=== PATIENT | male | born 1950 | race Caucasian/White ===

== ENCOUNTER 2017-03-06 05:44 | Observation (INO) | payer BC ==
[~2017-03-06] VITALS: Ht 184.2 cm; Wt 130.9 kg
[~2017-03-06 05:44] MED LIST: ATOR10TA15 PO; DILT300C3 PO; DOXA1TAB36 PO; LISI20TA3 PO; METF850T PO; MULT1TAB PO; SITA1TAB2 PO
[2017-03-06] MEDS ORDERED: CHLORHEXIDINE GLUCONATE 2 % 1 PACK (2 CLOTHS) TOPICAL PRN (06:15)
[2017-03-06] MEDS ORDERED: METOPROLOL TARTRATE 25 MG TAB PO PRN (06:15)
[2017-03-06] MEDS ORDERED: LACTATED RINGER'S 1000 ML IV PRN (06:15)
[2017-03-06] MEDS ORDERED: SODIUM CHLORID 0.9% 500 ML IV PRN (06:15)
[2017-03-06] MEDS ORDERED: POVIDONE IODINE 5% (ANTISEPSIS KIT) 4 APPLICATIONS EACH NARE PRN (06:15)
[2017-03-06] MEDS ORDERED: metroNIDAZOLE 500 MG INJ 100 ML IV SCH (06:15)
[2017-03-06] MEDS ORDERED: ceFAZolin 2 GM PREMIX 50 ML IV SCH (06:15)
[2017-03-06 06:57] LABS: AUTOMATED NEUTROPHIL # 5.1 TH/MM3 (1.8-7.7); BASOPHIL % 0.5 % (0.0-2.0); EOSINOPHIL # 0.2 TH/MM3 (0-0.4); EOSINOPHIL % 2.6 % (0.0-4.0); HEMATOCRIT 42.4 % (39.0-51.0); HEMOGLOBIN 14.4 GM/DL (13.0-17.0); LYMPH % 24.2 % (9.0-44.0); LYMPHOCYTE # 1.9 TH/MM3 (1.0-4.8); MEAN CELL VOLUME 84.7 FL (80.0-100.0); MEAN CORPUSCULAR HEMOGLOBIN 28.8 PG (27.0-34.0); MEAN PLATELET VOLUME 7.4 FL (7.0-11.0); MONOCYTE # 0.6 TH/MM3 (0-0.9); NEUT % 64.7 % (16.0-70.0); PLATELET COUNT 245 TH/MM3 (150-450); RED BLOOD COUNT 5.01 MIL/MM3 (4.50-5.90); WHITE BLOOD COUNT 7.8 TH/MM3 (4.0-11.0)
[2017-03-06] MEDS ORDERED: BUPIVACAINE/EPINEPHRINE 0.25% PF 30 ML VIAL ONE (06:58)
[2017-03-06 07:29] LABS: ALBUMIN 3.9 GM/DL (3.4-5.0); ALT (GPT) 46 U/L (12-78); AST (GOT) 28 U/L (15-37); BICARBONATE 25.8 MEQ/L (21.0-32.0); BLOOD UREA NITROGEN 15 MG/DL (7-18); CALCIUM 9.3 MG/DL (8.5-10.1); CHLORIDE 104 MEQ/L (98-107); CREATININE 0.76 MG/DL (0.60-1.30); GLOMERULAR FILTRATION RATE 103 ML/MIN (>89); GLUCOSE,RANDOM 157 MG/DL (74-106); SODIUM (NA) 139 MEQ/L (136-145)
[2017-03-06 07:32] LABS: ALKALINE PHOSPHATASE 46 U/L (45-117); TOTAL BILIRUBIN ADULT 0.5 MG/DL (0.2-1.0); TOTAL PROTEIN 7.6 GM/DL (6.4-8.2)
[2017-03-06] MEDS ORDERED: LACTATED RINGER'S 1000 ML INJ 1,000 ML IV SCH (09:42)
[2017-03-06] MEDS ORDERED: ONDANSETRON HCL 4 MG/2 ML VIAL IV PUSH PRN (09:45)
[2017-03-06] MEDS ORDERED: MORPHINE SULFATE 2 MG/ML INJ IM PRN (09:45)
[2017-03-06] MEDS ORDERED: DO NOT ADM ANY ANTICOAGULANT DRUGS PRN (09:45)
[2017-03-06] MEDS ORDERED: KETOROLAC TROMETHAMINE 30 MG/ML (IVP) VIAL IVP PRN (09:45)
[2017-03-06] MEDS ORDERED: ACETAMINOPHEN/HYDROcodone 325 MG/5 MG TAB PO PRN (09:45)
[2017-03-06] MEDS ORDERED: Post-op Orders (for Pharmacy) XX ONE (09:45)
[2017-03-06] MEDS ORDERED: diphenhydrAMINE HCL 25 MG CAP PO PRN (09:45)
[2017-03-06] MEDS ORDERED: NALOXONE HCL 0.4 MG/ML AMP IV PUSH PRN (09:45)
[2017-03-06] MEDS ORDERED: *RESP: ALBUTEROL 2.5 MG/3 ML NEB (PRN) PERIprocedural Use ONLY NEB ONE (09:55)
[2017-03-06 11:03] VITALS: BP 120/68; PULSE 72; RESP 18; TEMP 97.9; O2SAT 95
--- NOTE | 2017-03-06 11:59 | MP ---
cc: GARY SOUZA M.D. DATE OF SURGERY: 03/06/2017 PREOPERATIVE DIAGNOSIS 1. Chronic cholecystitis. 2. Morbid obesity. 3. Insulin-dependent diabetes mellitus. POSTOPERATIVE DIAGNOSIS 1. Chronic cholecystitis. 2. Morbid obesity. 3. Insulin-dependent diabetes mellitus. PROCEDURE PERFORMED Laparoscopic cholecystectomy. SURGEON Gary Souza MD ANESTHESIA General endotracheal. COMPLICATIONS None. INDICATION FOR PROCEDURE Mr. Barragan is a pleasant 66-year-old gentleman who has had multiple bouts of epigastric right upper quadrant abdominal pain. He was noted to have some abnormal LFTs on his routine blood work. He was sent by his physician Dr. Manuel Sethi for imaging. Ultrasound demonstrated thickened gallbladder wall with multiple gallstones consistent with chronic cholecystitis. He was referred for surgical evaluation. Risks and benefits of open laparoscopic cholecystectomy was discussed with him. He was agreeable. DETAILS OF PROCEDURE The patient was identified, brought to the operating room and placed supine on the operating table. After adequate general endotracheal anesthesia was achieved, the abdomen was prepped and draped in standard surgical fashion. Supraumbilical space was anesthetized with 0.25% Marcaine. Supraumbilical incision was made and dissection was carried down to subcutaneous tissue to midline fascia. Midline fascia was then incised sharply. A finger was then placed in the peritoneal cavity without difficulty. Blunt balloon trocar was inserted and the abdomen was insufflated to 15 mm using CO2 gas. Next, two 5 mm trocars were placed in the right upper quadrant after anesthetizing the skin and subcutaneous tissue with 0.25% Marcaine. Liver was visualized and found to be fatty. Picture was taken. Gallbladder was completely encased in omentum. We were unable to initially visualize the gallbladder. Gallbladder was carefully dissected out from the omentum and then elevated. The omentum was then carefully taken down using combination of blunt and electrocautery dissection until the gallbladder was completely freed. Gallbladder was noted to be markedly thickened and distended. Gallbladder was retracted cephalad. Next, attention was directed to the dissection of the gallbladder neck. Gallbladder neck was meticulously dissected. Cystic duct was identified and confirmed in two planes and seen entering the neck of the gallbladder. It was clipped twice proximally, once distally and divided. Additional dissection was used to identify the cystic artery. Cystic artery was seen entering the neck of the gallbladder. It was clipped twice proximally, once distally and then divided. Gallbladder was then dissected out of the hepatic fossa using electrocautery Bovie. Gallbladder was densely adherent to the hepatic fossa and the dissection was quite challenging as there was no plane between the gallbladder and the liver. All bleeding points were controlled with electrocautery Bovie. A small hole was made in the gallbladder and the bile was suctioned out so that none was spilled. Eventually we were able to get the gallbladder free from the liver. We put it into an Endopouch bag and brought it out through the supraumbilical port. We had to enlarge the supraumbilical port fascia and skin incision in order to get it out as it was quite large and filled with multiple large stones. Gallbladder was inspected and the clips were placed on the cystic duct stump. There was no evidence of leakage of bile. Gallbladder was sent to pathology for analysis. Next, the abdominal cavity was revisualized. The abdominal cavity was rinsed out with warm saline solution until the effluent was noted to be clear. Liver bed was carefully inspected, it was hemostatic. Clips were visualized on the cystic artery and cystic duct stump. There is no evidence of leakage of bile and no bleeding. At this point all ports were removed under direct vision. Midline fascia was repaired with a [id number] x2 in order to close the enlarged fascial incision. Subcutaneous tissue was irrigated out and injected with additional local anesthetic and closed with 4-0 Vicryl. The patient tolerated the procedure well, was awakened, brought to recovery in stable condition. Please note this operative case took approximately 1.5 hours. It was very difficult due to the patient's morbid obesity and the chronic inflammatory nature of the gallbladder. We had to open additional instrumentation and place a third laparoscopic port in order to clearly visualize the gallbladder and safely get it out laparoscopically. MD ALICIA Boateng/JONN /10:59 AM /11:21 AM
[2017-03-06] MEDS ORDERED: GLYCOPYRROLATE 1 MG/5 ML SYRINGE IV PUSH ONE (12:00)
[2017-03-06] MEDS ORDERED: LIDOCAINE HCL 1% PF 5 ML SYRINGE OTHER ONE (12:00)
[2017-03-06] MEDS ORDERED: NEOSTIGMINE 5 MG/5 ML SYRINGE IV PUSH ONE (12:00)
[2017-03-06] MEDS ORDERED: ONDANSETRON HCL 4 MG/2 ML VIAL IV ONE (12:00)
[2017-03-06] MEDS ORDERED: DEXAMETHASONE SOD PHOS 4 MG/ML VIAL IV ONE (12:00)
[2017-03-06] MEDS ORDERED: ROCURONIUM INJ 50 MG/5 ML SYRINGE IV PUSH ONE (12:00)
[2017-03-06] MEDS ORDERED: LACTATED RINGER'S 1000 ML INJ 1,000 ML IV ONE (12:00)
[2017-03-06] MEDS ORDERED: KETOROLAC TROMETHAMINE 30 MG/ML (IVP) VIAL IV PUSH ONE (12:00)
[2017-03-06] MEDS ORDERED: PROPOFOL 200 MG/20 ML AMP IV ONE (12:00)
[2017-03-06] MEDS ORDERED: PCA - TOTAL MG MORPHINE DELIVERED PER SHIFT SCH (14:00)
--- NOTE | 2017-03-06 22:20 | EKG ---
Date Performed: 03/06/2017 Time Performed: 07:05:14 PTAGE: 66 years EKG: Sinus rhythm NORMAL ECG NO PREVIOUS TRACING DOCTOR: Nic Constantino Interpretating Date/Time 03/06/2017 22:18:56
== END 2017-03-06 10:45 | disposition home or self-care (01) ==
LOC: HSDC 05:44 → HSDI 09:44
PROVIDERS: ADMIT Surgery Trauma Surgery; ATTEND Surgery Trauma Surgery
DX: K81.1 Chronic cholecystitis (principal); E11.9 Type 2 diabetes mellitus without complications; E66.01 Morbid (severe) obesity due to excess calories; Z79.4 Long term (current) use of insulin; Z68.38 Body mass index [BMI] 38.0-38.9, adult
CPT/HCPCS: 00790; 47562; 80053; 85025; 88304; 93005; 94664; J0690; J1100; J1885; J2405; J2710; J7120; J7613